=== PATIENT | female | born 1965 | race Caucasian/White ===

== ENCOUNTER 2020-12-16 23:46 | Emergency (ER) | payer OTHER ==
[2020-12-17 00:26] LABS: HEMOGLOBIN 12.1 gm/dl (12.3-15.3); RED BLOOD COUNT 3.92 M/UL (4.00-5.10); WHITE BLOOD COUNT 10.8 K/UL (4.5-11.0)
[2020-12-17 00:47] LABS: BUN/CREATININE RATIO 26 (0-10)
[2020-12-17] MEDS ORDERED: TORADOL 10 MG T10 MG PO (03:32)
== END 2020-12-17 03:47 | disposition home or self-care (01) ==
LOC: ER1 23:46
PROVIDERS: Family Medicine
DX: S22.41XA Multiple fractures of ribs, right side, initial encounter for closed fracture (principal); S22.20XA Unspecified fracture of sternum, initial encounter for closed fracture; I10 Essential (primary) hypertension; Z90.49 Acquired absence of other specified parts of digestive tract; Z90.89 Acquired absence of other organs; Z90.710 Acquired absence of both cervix and uterus; V49.40XA Driver injured in collision with unspecified motor vehicles in traffic accident, initial encounter; Y92.410 Unspecified street and highway as the place of occurrence of the external cause; Z88.8 Allergy status to other drugs, medicaments and biological substances
CPT/HCPCS: 71260; 80053; 82550; 82553; 83874; 84484; 85025; 93005; 96374; 99285; J1885; Q9967